=== PATIENT | male | born 1965 | race Caucasian/White ===

== ENCOUNTER 2021-03-09 10:23 | Day surgery (SDC) | payer OTHER ==
[~2021-03-09] VITALS: Ht 182.9 cm; Wt 102.8 kg
[~2021-03-09 10:23] MED LIST: SODIUM CHLORIDE 0.9% 1,000 ML ONE
[2021-03-09] MEDS ORDERED: DIAZEPAM 5 MG TABLET ONE (10:54)
[2021-03-09] MEDS ORDERED: ASPIRIN 81 MG CHEWABLE TABLET ONE (10:55)
[2021-03-09] MEDS ORDERED: DiphenhydrAMINE HCL 50 MG CAPSULE ONE (10:55)
[2021-03-09] MEDS ORDERED: SODIUM CHLORIDE 0.9% 1,000 ML IV ONE (11:30)
[2021-03-09] MEDS ORDERED: DIAZEPAM 5 MG TABLET PO ONE (13:30)
[2021-03-09] MEDS ORDERED: ASPIRIN 81 MG CHEWABLE TABLET PO ONE (13:30)
[2021-03-09] MEDS ORDERED: DiphenhydrAMINE HCL 50 MG CAPSULE PO ONE (13:30)
[2021-03-09] MEDS ORDERED: IOHEXOL 300 MG/ML 50 ML VIAL ONE (15:04)
[2021-03-09] MEDS ORDERED: SODIUM BICARBONATE 50 MEQ/50 ML VIAL ONE (15:04)
[2021-03-09] MEDS ORDERED: HEPARIN SODIUM 1000 UNITS/NS 500 ML ONE (15:04)
[2021-03-09] MEDS ORDERED: IOHEXOL 300 MG/ML 150 ML VIAL ONE (15:04)
[2021-03-09] MEDS ORDERED: LIDOCAINE/PF 1% 30 ML VIAL ONE (15:04)
[2021-03-09 15:24] VITALS: BP 127/78
[2021-03-09] MEDS ORDERED: FentaNYL CITRATE PF 100 MCG/2 ML VIAL ONE ×2 (15:40→15:55)
[2021-03-09] MEDS ORDERED: MIDAZOLAM HCL 2 MG/2 ML VIAL ONE ×2 (15:40→15:55)
[2021-03-09] MEDS ORDERED: MIDAZOLAM HCL 2 MG/2 ML VIAL IVP ONE ×2 (15:45)
[2021-03-09] MEDS ORDERED: FentaNYL CITRATE PF 100 MCG/2 ML VIAL IVP ONE ×2 (15:45)
[2021-03-09] MEDS ORDERED: LIDOCAINE 1% 30 ML/SOD BICARB 8.4% 4 ML SQ ONE (15:45)
[2021-03-09] MEDS ORDERED: HEPARIN SODIUM 1000 UNITS/NS 1,000 ML IARTER ONE (15:45)
[2021-03-09] MEDS ORDERED: IOHEXOL 300 MG/ML 150 ML VIAL IARTER ONE (15:45)
[2021-03-09 16:05] VITALS: BP 119/56
== END 2021-03-09 19:10 | disposition home or self-care (01) ==
LOC: CATHLAB 10:23
PROVIDERS: ATTEND Internal Medicine Interventional Cardiology
DX: R07.9 Chest pain, unspecified (principal); R94.39 Abnormal result of other cardiovascular function study; E78.5 Hyperlipidemia, unspecified; F17.210 Nicotine dependence, cigarettes, uncomplicated; Z79.899 Other long term (current) drug therapy; Z98.890 Other specified postprocedural states
CPT/HCPCS: 93005; 93458; 99152; C1760; J1644; J2250; J3010; J3490 ×2; J7030; Q9967